=== PATIENT | male | born 1985 | race Two or more races ===

== ENCOUNTER 2016-10-15 14:50 | Inpatient (IN) | payer MEDICAID ==
[~2016-10-15] VITALS: Ht 167.6 cm; Wt 78.9 kg
[2016-10-15 15:27] VITALS: BP 108/86
[2016-10-15 15:41] LABS: BASOPHILS % (AUTO) 1.5 % (0.0-2.0); EOSINOPHILS % (AUTO) 5.8 % (0.0-3.0); LYMPHOCYTES % (AUTO) 29.2 % (20.0-45.0); MEAN CORPUSCULAR HEMOGLOBIN 30.4 PG (27.0-31.0); MEAN CORPUSCULAR HGB CONC 33.1 G/DL (32.0-36.0); MEAN CORPUSCULAR VOLUME 92 FL (80-99); MEAN PLATELET VOLUME 7.1 FL (6.5-10.1); MONOCYTES % (AUTO) 6.2 % (1.0-10.0); NEUTROPHILS % (AUTO) 57.3 % (45.0-75.0); PLATELET COUNT 333 K/UL (150-450); RED BLOOD COUNT 5.25 M/UL (4.70-6.10); RED CELL DISTRIBUTION WIDTH 12.3 % (11.6-14.8); WHITE BLOOD COUNT 9.4 K/UL (4.8-10.8)
[2016-10-15 15:53] LABS: ALANINE AMINOTRANSFERASE 23 U/L (3-41); ALBUMIN/GLOBULIN RATIO 1.1 (1.0-2.7); ANION GAP 17 (5-15); ASPARTATE AMINO TRANSFERASE 16 U/L (5-40); CALCIUM 9.4 mg/dL (8.6-10.2); CARBON DIOXIDE 27 mEQ/L (20-30); CHLORIDE 93 mEQ/L (98-107); CREATININE 0.8 mg/dL (0.7-1.2); GLOMERULAR FILTRATION RATE > 60 mL/min (>60); HEMOLYSIS 7; POTASSIUM 4.1 mEQ/L (3.4-4.9); SODIUM 137 mEQ/L (135-145); TOTAL PROTEIN 7.6 g/dL (6.6-8.7)
[2016-10-15] MEDS ORDERED: Miralax 17gm pkt ORAL PRN (16:30)
[2016-10-15] MEDS ORDERED: Morphine Sulfate 2mg/ml Inj IVP PRN (16:30)
[2016-10-15] MEDS ORDERED: Zolpidem 5mg tab ORAL PRN (16:30)
[2016-10-15] MEDS ORDERED: LORazepam Inj 2mg/ml 1ml IV PRN (16:30)
[2016-10-15] MEDS ORDERED: Mylanta II UD 30ml ORAL PRN (16:30)
--- NOTE | 2016-10-15 16:59 | Diagnostic Imaging Report ---
Indication: Shortness of breath Technique: One view of the chest Comparison: none Findings: There is elevation of the right hemidiaphragm with right basilar atelectatic change. There is a tracheostomy. Lungs and pleural spaces otherwise clear. Heart size is normal Impression: Elevated right hemidiaphragm with bibasilar atelectasis. No acute process
[2016-10-15 17:08] LABS: APPEARANCE,URINE CLEAR; KETONES,URINE NEGATIVE (NEGATIVE); LEUKOCYTE ESTERASE ,URINE NEGATIVE (NEGATIVE); NITRITE,URINE NEGATIVE (NEGATIVE); PH,URINE 6 (4.5-8.0); PROTEIN,URINE NEGATIVE (NEGATIVE); UROBILINOGEN,URINE NORMAL MG/DL (0.0-1.0)
--- NOTE | 2016-10-15 17:14 | Emergency Room Report ---
History of Present Illness General Chief Complaint: Seizure Source: Medical Record, EMS Present Illness HPI Patient presents from a detention facility. He has a history of respiratory failure and is trach/event dependent. This history of an anoxic brain injury and epilepsy. He presents secondary to status epilepticus. Per report, the patient was having a seizure for about 15 minutes. The patient received 5 mg of IV of versed by EMS. His seizure has stopped. There are no other complaints. Allergies: Coded Allergies: No Known Allergies (Unverified , 10/15/16) Patient History Past Medical History: see triage record, DM, GERD, seizures, other - Anoxic brain injury Past Surgical History: other - Trach/vent, PEG Social History: Denies: alcohol use, drug use, smoking Reviewed Nursing Documentation: PMH: Agreed, PSxH: Agreed Nursing Documentation-PMH Past Medical History Deferred: Pt Cognitively Impaired Past Medical History: No History, Except For Hx Diabetes: Yes Hx Seizures: Yes - epilespy Review of Systems All Other Systems: negative except mentioned in HPI Physical Exam Vital Signs Date Time Temp Pulse Resp B/P Pulse Ox O2 Delivery O2 Flow Rate FiO2 10/15/16 14:51 99.1 92 23 110/89 97 Trach Collar 35 10/15/16 15:02 10.0 Sp02 EP Interpretation: reviewed, normal General Appearance: no apparent distress, alert, GCS 15, non-toxic Head: normocephalic, atraumatic Eyes: bilateral eye PERRL, bilateral eye normal inspection ENT: no angioedema Neck: full range of motion, supple/symm/no masses, other - Trach site clear Respiratory: chest non-tender, lungs clear, normal breath sounds, no respiratory distress Cardiovascular #1: regular rate, rhythm Gastrointestinal: normal bowel sounds, non tender, soft, non-distended, no guarding, no rebound Rectal: deferred Musculoskeletal: other - AT baseline Neurologic: alert, other - AT baseline Psychiatric: mood/affect normal Skin: warm/dry, well hydrated, other - See RN skin Report. Medical Decision Making Diagnostic Impression: Primary Impression: Uncontrolled seizures ER Course Patient presents with uncontrolled of prolonged seizures meeting criteria for status epilepticus. However, patient had no further seizure activity here in the emergency department. Laboratory workup is noncontributory. The patient is admitted for uncontrolled seizures. CT of the head is pending and will be followed up by the inpatient physician. There is no history of trauma and the patient has a history of epilepsy so I have low suspicion for acute intracranial process. The patient is admitted for further evaluation and treatment. Labs Test 10/15/16 15:15 10/15/16 16:26 White Blood Count 9.4 K/UL (4.8-10.8) Red Blood Count 5.25 M/UL (4.70-6.10) Hemoglobin 16.0 G/DL (14.2-18.0) Hematocrit 48.2 % (42.0-52.0) Mean Corpuscular Volume 92 FL (80-99) Mean Corpuscular Hemoglobin 30.4 PG (27.0-31.0) Mean Corpuscular Hemoglobin Concent 33.1 G/DL (32.0-36.0) Red Cell Distribution Width 12.3 % (11.6-14.8) Platelet Count 333 K/UL (150-450) Mean Platelet Volume 7.1 FL (6.5-10.1) Neutrophils (%) (Auto) 57.3 % (45.0-75.0) Lymphocytes (%) (Auto) 29.2 % (20.0-45.0) Monocytes (%) (Auto) 6.2 % (1.0-10.0) Eosinophils (%) (Auto) 5.8 % (0.0-3.0) Basophils (%) (Auto) 1.5 % (0.0-2.0) Sodium Level 137 mEQ/L (135-145) Potassium Level 4.1 mEQ/L (3.4-4.9) Chloride Level 93 mEQ/L (98-107) Carbon Dioxide Level 27 mEQ/L (20-30) Anion Gap 17 (5-15) Blood Urea Nitrogen 12 mg/dL (7-23) Creatinine 0.8 mg/dL (0.7-1.2) Estimat Glomerular Filtration Rate > 60 mL/min (>60) Glucose Level 171 mg/dL (74-106) Calcium Level 9.4 mg/dL (8.6-10.2) Total Bilirubin 0.5 mg/dL (0.0-1.2) Aspartate Amino Transf (AST/SGOT) 16 U/L (5-40) Alanine Aminotransferase (ALT/SGPT) 23 U/L (3-41) Alkaline Phosphatase 114 U/L (40-129) Total Protein 7.6 g/dL (6.6-8.7) Albumin 4.1 g/dL (3.5-5.2) Globulin 3.5 g/dL Albumin/Globulin Ratio 1.1 (1.0-2.7) Urine Color Pale yellow Urine Appearance Clear Urine pH 6 (4.5-8.0) Urine Specific [place] 1.015 (1.005-1.035) Urine Protein Negative (NEGATIVE) Urine Glucose (UA) Negative (NEGATIVE) Urine Ketones Negative (NEGATIVE) Urine Occult Blood Negative (NEGATIVE) Urine Nitrite Negative (NEGATIVE) Urine Bilirubin Negative (NEGATIVE) Urine Urobilinogen Normal MG/DL (0.0-1.0) Urine Leukocyte Esterase Negative (NEGATIVE) Chest X-Ray Diagnostic Results EP Interpretation: No Findings: no consolidation, no effusion, no pneumothorax, no acute cardiopulmonary disease Number of Views: 1 Other Impression Impression: Elevated right hemidiaphragm with bibasilar atelectasis. No acute process CT/MRI/US Diagnostic Results CT/MRI/US Diagnostic Results : Imaging Test Ordered: CT head Impression pending Last Vital Signs Date Time Temp Pulse Resp B/P Pulse Ox O2 Delivery O2 Flow Rate FiO2 10/15/16 15:31 87 20 Endotracheal Tube 10.0 36 10/15/16 15:27 99.2 108/86 100 Status: improved Disposition: ADMITTED INPATIENT Condition: Serious Referrals: RICCARDO WELLS (PCP) STEPHEN VILLALOBOS D.O. Oct 15, 2016 17:14
[2016-10-15 17:18] VITALS: BP 141/81
[2016-10-15] MEDS ORDERED: UNOBMED (17:19)
[2016-10-15] MEDS ORDERED: HUMULIN R100 UNIT/1 SUBQ (17:24)
[2016-10-15] MEDS ORDERED: DOCU LIQUI50 MG/5 M1 GT (17:32)
[2016-10-15] MEDS ORDERED: NEXIUM40 MG ORAL (17:32)
[2016-10-15] MEDS ORDERED: ALBUTEROL2.5 MG/3 M INH (17:32)
[2016-10-15] MEDS ORDERED: KEPPRA500 M4 ORAL (17:32)
[2016-10-15] MEDS ORDERED: ACETAMINOPHEN325 M3 PO (17:32)
[2016-10-15] MEDS ORDERED: NORCO 5-325 TA1 EACH ORAL (17:32)
[2016-10-15] MEDS ORDERED: ARTIFICIAL TEAR15 ML BOTH EYES (17:32)
[2016-10-15] MEDS ORDERED: BISACODYL5 MG ORAL (17:32)
[2016-10-15] MEDS ORDERED: UTI-STAT L3875 MG/31 PO (17:33)
[2016-10-15] MEDS ORDERED: Pneumococcal Vaccine 25mcg/0.5ml IM ONE (19:00)
[2016-10-15 20:00] VITALS: BP 123/57
[2016-10-15] MEDS: Heparin 5000 units/ml inj SUBQ SCH (21:22)
[2016-10-16] VITALS: BP 102/76
[2016-10-16 04:00] VITALS: BP 112/82
[2016-10-16] MEDS: NovoLOG Insulin Flexpen SUBQ SCH ×4 (05:57→23:56)
[2016-10-16 06:14] LABS: BASOPHILS % (AUTO) 1.2 % (0.0-2.0); EOSINOPHILS % (AUTO) 4.8 % (0.0-3.0); LYMPHOCYTES % (AUTO) 36.3 % (20.0-45.0); MEAN CORPUSCULAR HEMOGLOBIN 30.5 PG (27.0-31.0); MEAN CORPUSCULAR HGB CONC 33.4 G/DL (32.0-36.0); MEAN CORPUSCULAR VOLUME 91 FL (80-99); MEAN PLATELET VOLUME 6.8 FL (6.5-10.1); MONOCYTES % (AUTO) 5.4 % (1.0-10.0); NEUTROPHILS % (AUTO) 52.3 % (45.0-75.0); PLATELET COUNT 325 K/UL (150-450); RED BLOOD COUNT 5.05 M/UL (4.70-6.10); RED CELL DISTRIBUTION WIDTH 12.2 % (11.6-14.8); WHITE BLOOD COUNT 9.8 K/UL (4.8-10.8)
[2016-10-16] MEDS ORDERED: NovoLOG Insulin Flexpen SUBQ SCH (06:30)
[2016-10-16 06:52] LABS: ALANINE AMINOTRANSFERASE 21 U/L (3-41); ANION GAP 17 (5-15); ASPARTATE AMINO TRANSFERASE 16 U/L (5-40); CARBON DIOXIDE 25 mEQ/L (20-30); CHLORIDE 97 mEQ/L (98-107); CREATININE 0.6 mg/dL (0.7-1.2); GLOMERULAR FILTRATION RATE > 60 mL/min (>60); HEMOLYSIS 6; POTASSIUM 3.8 mEQ/L (3.4-4.9); SODIUM 139 mEQ/L (135-145); TOTAL PROTEIN 7.1 g/dL (6.6-8.7)
[2016-10-16 08:00] VITALS: BP 119/79
[2016-10-16] MEDS: Heparin 5000 units/ml inj SUBQ SCH ×2 (08:51→20:21)
--- NOTE | 2016-10-16 11:44 | Neurology Progress Note ---
Interim History Interim History ROS Limited/Unobtainable: Yes Objective Physical Exam Last Vital Signs Date Time Temp Pulse Resp B/P Pulse Ox O2 Delivery O2 Flow Rate FiO2 10/16/16 08:00 98.8 76 20 119/79 96 Trach Collar 35 10/16/16 08:00 35.0 Laboratory Tests Test 10/15/16 15:15 10/15/16 16:26 10/16/16 03:40 White Blood Count 9.4 K/UL (4.8-10.8) 9.8 K/UL (4.8-10.8) Red Blood Count 5.25 M/UL (4.70-6.10) 5.05 M/UL (4.70-6.10) Hemoglobin 16.0 G/DL (14.2-18.0) 15.4 G/DL (14.2-18.0) Hematocrit 48.2 % (42.0-52.0) 46.1 % (42.0-52.0) Mean Corpuscular Volume 92 FL (80-99) 91 FL (80-99) Mean Corpuscular Hemoglobin 30.4 PG (27.0-31.0) 30.5 PG (27.0-31.0) Mean Corpuscular Hemoglobin Concent 33.1 G/DL (32.0-36.0) 33.4 G/DL (32.0-36.0) Red Cell Distribution Width 12.3 % (11.6-14.8) 12.2 % (11.6-14.8) Platelet Count 333 K/UL (150-450) 325 K/UL (150-450) Mean Platelet Volume 7.1 FL (6.5-10.1) 6.8 FL (6.5-10.1) Neutrophils (%) (Auto) 57.3 % (45.0-75.0) 52.3 % (45.0-75.0) Lymphocytes (%) (Auto) 29.2 % (20.0-45.0) 36.3 % (20.0-45.0) Monocytes (%) (Auto) 6.2 % (1.0-10.0) 5.4 % (1.0-10.0) Eosinophils (%) (Auto) 5.8 % (0.0-3.0) H 4.8 % (0.0-3.0) H Basophils (%) (Auto) 1.5 % (0.0-2.0) 1.2 % (0.0-2.0) Sodium Level 137 mEQ/L (135-145) 139 mEQ/L (135-145) Potassium Level 4.1 mEQ/L (3.4-4.9) 3.8 mEQ/L (3.4-4.9) Chloride Level 93 mEQ/L (98-107) L 97 mEQ/L (98-107) L Carbon Dioxide Level 27 mEQ/L (20-30) 25 mEQ/L (20-30) Anion Gap 17 (5-15) H 17 (5-15) H Blood Urea Nitrogen 12 mg/dL (7-23) 10 mg/dL (7-23) Creatinine 0.8 mg/dL (0.7-1.2) 0.6 mg/dL (0.7-1.2) L Estimat Glomerular Filtration Rate > 60 mL/min (>60) > 60 mL/min (>60) Glucose Level 171 mg/dL (74-106) H 118 mg/dL (74-106) H Calcium Level 9.4 mg/dL (8.6-10.2) 9.0 mg/dL (8.6-10.2) Total Bilirubin 0.5 mg/dL (0.0-1.2) 0.9 mg/dL (0.0-1.2) Aspartate Amino Transf (AST/SGOT) 16 U/L (5-40) 16 U/L (5-40) Alanine Aminotransferase (ALT/SGPT) 23 U/L (3-41) 21 U/L (3-41) Alkaline Phosphatase 114 U/L (40-129) 110 U/L (40-129) Total Protein 7.6 g/dL (6.6-8.7) 7.1 g/dL (6.6-8.7) Albumin 4.1 g/dL (3.5-5.2) 3.6 g/dL (3.5-5.2) Globulin 3.5 g/dL 3.5 g/dL Albumin/Globulin Ratio 1.1 (1.0-2.7) 1.0 (1.0-2.7) Urine Color Pale yellow Urine Appearance Clear Urine pH 6 (4.5-8.0) Urine Specific [place] 1.015 (1.005-1.035) Urine Protein Negative (NEGATIVE) Urine Glucose (UA) Negative (NEGATIVE) Urine Ketones Negative (NEGATIVE) Urine Occult Blood Negative (NEGATIVE) Urine Nitrite Negative (NEGATIVE) Urine Bilirubin Negative (NEGATIVE) Urine Urobilinogen Normal MG/DL (0.0-1.0) Urine Leukocyte Esterase Negative (NEGATIVE) Impression/Recommendations Problems: (1) chronic generalised seizure disorder, exacerbation (2) Severe anoxic-ischemic encephalopathy (3) Diabetes Status: unchanged Recommendations #[id number] AMRIT RAWLS Oct 16, 2016 11:44
[2016-10-16 12:00] VITALS: BP 133/72
--- NOTE | 2016-10-16 12:09 | History and Physical ---
History of Present Illness General Date patient seen: Oct 16, 2016 Reason for Hospitalization: Seizure Present Illness HPI 30 year old male with history of respiratory failure and is trach/event/PEG, living in nursing home facility with anoxic brain injury and epilepsy. He presents secondary to status epilepticus. Per report, the patient was having a seizure for about 15 minutes. The patient received 5 mg of IV of versed by EMS. His seizure has stopped. He is admitted for further work up. Allergies: Coded Allergies: No Known Allergies (Unverified , 10/15/16) Medication History Scheduled Acetaminophen (Acetaminophen), 650 MG PO EVERY 4 HOURS, (Reported) Cran/Vitc/Mannose/Inulin/Brom (Uti-Stat Liquid), 3,875 MG PO BID, (Reported) Docusate Sodium (Docu Liquid), 100 MG GT DAILY, (Reported) Esomeprazole Magnesium (Nexium), 40 MG ORAL DAILY, (Reported) Insulin Regular, Human (Humulin R), 0 SUBQ Q6HR, (Reported) Levetiracetam (Keppra), 1,500 MG ORAL EVERY 12 HOURS, (Reported) Scheduled PRN Albuterol Sulfate* (Albuterol Sulfate Hhn*), 3 ML INH Q3HR PRN for Shortness of Breath, (Reported) Bisacodyl* (Dulcolax*), 10 MG ORAL DAILY PRN for Constipation, (Reported) Dextran 70/Hypromellose (Artificial Tears Eye Drops*), 1 DROP BOTH EYES EVERY 6 HOURS PRN for Dry Eyes, (Reported) Hydrocodone Bit/Acetaminophen 5-325* ([place] 5-325*), 1 TAB ORAL Q4H PRN for For Pain, (Reported) Miscellaneous Medications Unable to Obtain Medications (Unable To Obtain Meds), (Reported) Patient History Healthcare decision maker Resuscitation status Full Code Advanced Directive on File Past Medical/Surgical History Past Medical/Surgical History: (1) Diabetes (2) Severe anoxic-ischemic encephalopathy Review of Systems All Other Systems: negative except mentioned in HPI Physical Exam General Appearance: WD/WN Lines, tubes and drains: peripheral, central line, gtube HEENT: status post trach Neck: non-tender, normal alignment Cardiovascular/Chest: normal peripheral pulses, normal rate Abdomen: normal bowel sounds, non tender Last 24 Hour Vital Signs Date Time Temp Pulse Resp B/P Pulse Ox O2 Delivery O2 Flow Rate FiO2 10/16/16 08:00 98.8 76 20 119/79 96 Trach Collar 35 10/16/16 08:00 35.0 10/16/16 08:00 79 10/16/16 06:30 T-piece 10.0 35 10/16/16 06:30 83 13 T-piece 10.0 35 10/16/16 06:30 96 T-piece 10.0 35 10/16/16 04:00 35.0 10/16/16 04:00 96.8 88 20 112/82 97 Trach Collar 10/16/16 03:58 79 10/16/16 00:38 96 T-piece 10.0 35 10/16/16 00:38 T-piece 10.0 35 10/16/16 00:01 80 10/16/16 00:00 35.0 10/16/16 00:00 97.9 100 24 102/76 98 Trach Collar 10/15/16 20:00 97 10/15/16 20:00 97.8 86 18 123/57 99 Trach Collar 35 10/15/16 19:30 T-piece 10.0 35 10/15/16 19:30 99 T-piece 10.0 35 10/15/16 19:29 63 16 T-piece 10.0 35 10/15/16 17:18 98.1 82 18 141/81 96 Trach Collar 10/15/16 17:00 80 10/15/16 17:00 35.0 10/15/16 16:27 99.2 20 108/86 100 Endotracheal Tube 10.0 36 10/15/16 15:31 87 20 Endotracheal Tube 10.0 36 10/15/16 15:27 99.2 14 108/86 100 Endotracheal Tube 10.0 36 10/15/16 15:05 92 13 T-piece 10.0 35 10/15/16 15:02 95 T-piece 10.0 35 10/15/16 15:02 T-piece 10.0 35 10/15/16 14:51 99.1 92 23 110/89 97 Trach Collar 35 Intake and Output 10/15/16 10/16/16 19:00 07:00 Intake Total 30 ml 280 ml Output Total 120 ml Balance -90 ml 280 ml Intake Free Water 30 ml 100 ml Tube Feeding 180 ml Output Urine Total 120 ml # Voids 3 # Bowel Movements 1 Laboratory Tests Test 10/15/16 15:15 10/15/16 16:26 10/16/16 03:40 White Blood Count 9.4 K/UL (4.8-10.8) 9.8 K/UL (4.8-10.8) Red Blood Count 5.25 M/UL (4.70-6.10) 5.05 M/UL (4.70-6.10) Hemoglobin 16.0 G/DL (14.2-18.0) 15.4 G/DL (14.2-18.0) Hematocrit 48.2 % (42.0-52.0) 46.1 % (42.0-52.0) Mean Corpuscular Volume 92 FL (80-99) 91 FL (80-99) Mean Corpuscular Hemoglobin 30.4 PG (27.0-31.0) 30.5 PG (27.0-31.0) Mean Corpuscular Hemoglobin Concent 33.1 G/DL (32.0-36.0) 33.4 G/DL (32.0-36.0) Red Cell Distribution Width 12.3 % (11.6-14.8) 12.2 % (11.6-14.8) Platelet Count 333 K/UL (150-450) 325 K/UL (150-450) Mean Platelet Volume 7.1 FL (6.5-10.1) 6.8 FL (6.5-10.1) Neutrophils (%) (Auto) 57.3 % (45.0-75.0) 52.3 % (45.0-75.0) Lymphocytes (%) (Auto) 29.2 % (20.0-45.0) 36.3 % (20.0-45.0) Monocytes (%) (Auto) 6.2 % (1.0-10.0) 5.4 % (1.0-10.0) Eosinophils (%) (Auto) 5.8 % (0.0-3.0) H 4.8 % (0.0-3.0) H Basophils (%) (Auto) 1.5 % (0.0-2.0) 1.2 % (0.0-2.0) Sodium Level 137 mEQ/L (135-145) 139 mEQ/L (135-145) Potassium Level 4.1 mEQ/L (3.4-4.9) 3.8 mEQ/L (3.4-4.9) Chloride Level 93 mEQ/L (98-107) L 97 mEQ/L (98-107) L Carbon Dioxide Level 27 mEQ/L (20-30) 25 mEQ/L (20-30) Anion Gap 17 (5-15) H 17 (5-15) H Blood Urea Nitrogen 12 mg/dL (7-23) 10 mg/dL (7-23) Creatinine 0.8 mg/dL (0.7-1.2) 0.6 mg/dL (0.7-1.2) L Estimat Glomerular Filtration Rate > 60 mL/min (>60) > 60 mL/min (>60) Glucose Level 171 mg/dL (74-106) H 118 mg/dL (74-106) H Calcium Level 9.4 mg/dL (8.6-10.2) 9.0 mg/dL (8.6-10.2) Total Bilirubin 0.5 mg/dL (0.0-1.2) 0.9 mg/dL (0.0-1.2) Aspartate Amino Transf (AST/SGOT) 16 U/L (5-40) 16 U/L (5-40) Alanine Aminotransferase (ALT/SGPT) 23 U/L (3-41) 21 U/L (3-41) Alkaline Phosphatase 114 U/L (40-129) 110 U/L (40-129) Total Protein 7.6 g/dL (6.6-8.7) 7.1 g/dL (6.6-8.7) Albumin 4.1 g/dL (3.5-5.2) 3.6 g/dL (3.5-5.2) Globulin 3.5 g/dL 3.5 g/dL Albumin/Globulin Ratio 1.1 (1.0-2.7) 1.0 (1.0-2.7) Urine Color Pale yellow Urine Appearance Clear Urine pH 6 (4.5-8.0) Urine Specific [place] 1.015 (1.005-1.035) Urine Protein Negative (NEGATIVE) Urine Glucose (UA) Negative (NEGATIVE) Urine Ketones Negative (NEGATIVE) Urine Occult Blood Negative (NEGATIVE) Urine Nitrite Negative (NEGATIVE) Urine Bilirubin Negative (NEGATIVE) Urine Urobilinogen Normal MG/DL (0.0-1.0) Urine Leukocyte Esterase Negative (NEGATIVE) Microbiology Date/Time Source Procedure Growth Status 10/15/16 16:26 Straight Cath Urine Culture - Preliminary NO GROWTH Resulted Height (Feet): 5 Height (Inches): 6.00 Weight (Pounds): 174 Medications Current Medications Medications (Trade) Dose Ordered Sig/Sanjeev Route PRN Reason Start Time Stop Time Status Last Admin Dose Admin Acetaminophen (Tylenol) 650 mg Q4H PRN ORAL fever 10/15/16 16:30 11/14/16 16:29 Al Hydroxide/Mg Hydroxide (Mylanta II) 30 ml Q6H PRN ORAL dyspepsia 10/15/16 16:30 11/14/16 16:29 Dextrose (Dextrose 50%) STAT PRN IV Hypoglycemia 10/15/16 16:30 11/14/16 16:29 Divalproex Sodium (Depakote Sprinkles) 250 mg EVERY 6 HOURS GT 10/16/16 12:00 11/15/16 11:59 Heparin Sodium (Porcine) (Heparin 5000 units/ml) 5,000 units EVERY 12 HOURS SUBQ 10/15/16 21:00 11/14/16 20:59 10/16/16 08:51 Insulin Aspart (NovoLOG) EVERY 6 HOURS SUBQ 10/16/16 06:00 11/15/16 05:59 10/16/16 05:57 Levetiracetam (Keppra) 1,500 mg Q12HR NG 10/16/16 12:00 11/15/16 11:59 Lorazepam (Ativan 2mg/ml 1ml) 2 mg Q1H PRN IV seizures 10/15/16 16:30 10/22/16 16:29 10/15/16 21:22 Morphine Sulfate (Morphine Sulfate) 1 mg Q4H PRN IVP FOR PAIN 410/15/16 16:30 10/22/16 16:29 Ondansetron HCl (Zofran) 4 mg Q6H PRN IVP Nausea & Vomiting 10/15/16 16:30 11/14/16 16:29 Pantoprazole (Protonix) 40 mg DAILY ORAL 10/16/16 09:00 11/15/16 08:59 10/16/16 08:49 Polyethylene Glycol (Miralax) 17 gm HSPRN PRN ORAL Constipation 10/15/16 16:30 11/14/16 16:29 Zolpidem Tartrate (Ambien) 5 mg HSPRN PRN ORAL Insomnia 10/15/16 16:30 11/14/16 16:29 Assessment/Plan Problem List: (1) Uncontrolled seizures ICD Codes: R56.9 - Unspecified convulsions SNOMED: 86194659 (2) Diabetes ICD Codes: E11.9 - Type 2 diabetes mellitus without complications SNOMED: 00168438 (3) Severe anoxic-ischemic encephalopathy ICD Codes: G93.1 - Anoxic brain damage, not elsewhere classified; I67.82 - Cerebral ischemia SNOMED: 257559411 Assessment/Plan [facility] admission Neuro evaluation titrate seizure meds Gtube feeding dvt prophylaxis EMMIE PEDROZA Oct 16, 2016 12:09
[2016-10-16] MEDS: Depakote 125mg Sprinkles GT SCH ×3 (12:38→23:56)
[2016-10-16] MEDS: levETIRAcetam 500mg/5ml Liquid NG SCH ×2 (12:38→20:20)
[2016-10-16 16:00] VITALS: BP 96/71
--- NOTE | 2016-10-16 18:29 | Consultation ---
DATE OF CONSULTATION: 10/16/2016 NEUROLOGICAL CONSULTATION HISTORY OF PRESENT ILLNESS: The patient is a [id number] man resident of a nursing facility and was observed to have intermittent twitching in left upper extremity. Paramedics were called to the scene. The patient had a continuous twitching for about 15 minutes, but after receiving 5 mg of Versed, seizure stopped. The patient was brought to this hospital for further assessment. His vital signs were normal. He was afebrile, he had a temperature 99.1 degrees. No seizures were noted in the emergency room. The patient's laboratory work was obtained with normal CBC studies. Chemistry panel unremarkable except anion gap of 17 and blood sugar 171. Urinalysis normal. His chest x-ray, elevated right hemidiaphragm with bibasilar atelectasis, but no acute process noted. CAT scan of the brain was postponed. Following admission, there was brief episode of intermittent twitching of his both upper extremities, more on the left, gradually resolved with the current treatment. He is maintained on IV fluids, subcutaneous heparin, insulin, pantoprazole, Zofran, MiraLAX and zolpidem. The patient to continue with Keppra 1500 mg b.i.d. PAST MEDICAL HISTORY: Known that the patient suffered from severe anoxic brain damage, becoming nonverbal, noncommunicative, and bedridden with chronic seizure disorder, maintained on Keppra 1500 mg b.i.d. The patient has a chronic respiratory insufficiency. As mentioned, the patient has a history of diabetes, chronic seizure disorder, status post anoxic brain injury, and history of GERD. ALLERGIES: None reported. FAMILY HISTORY: Unavailable. REVIEW OF SYSTEMS: Unable to obtain due the patient's status. The patient has PEG and trach placed. PHYSICAL EXAMINATION: GENERAL: This is a well-developed and ill-appearing somewhat pale man, not in acute distress. VITAL SIGNS: Blood pressure 115/80 and respiration 18. HEENT: Head, normocephalic. There is no evidence of trauma. Eyes, ears, and throat are clear. NECK: Rigid in all directions. MUSCULOSKELETAL: Diffuse atrophy, spasticity bilaterally. Peripheral pulses 1+ symmetric. MENTAL STATUS: The patient is lethargic, vigorous stimulation, moans and groans, briefly open eyes. No eye contact. He does not follow instructions and remained nonverbal. CRANIAL NERVE II: A 3 mm, responding to light. Extraocular movement full range. Fundi unable to test due to noncompliance. CRANIAL NERVE V: Normal corneal responses. CRANIAL NERVE VII: No gross asymmetry. CRANIAL NERVE VIII: Grossly normal hearing. CRANIAL NERVE IX THROUGH XII: Absent gag response. Tongue is in midline. MOTOR EXAMINATION: Diffuse rigidity, spasticity of both upper lower extremities with flexor with a tendency to contract both arms and both knees. A peripheral pulses 1+. Deep tendon reflexes are 4+ bilaterally. Plantar response is mute. SENSORY EXAMINATION: No response to pin stimulation. IMPRESSION: 1. 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 2. Chronic seizure disorder, breakthrough exacerbation. 3. History of diabetes. 4. History of gastroesophageal reflux disease. RECOMMENDATION: The patient who has a chronic seizure disorder, presented with exacerbation of seizure activities while being maintained on maximum of Keppra. We will obtain Keppra level, to identify toxicity versus subtherapeutic range. We will add new anticonvulsant, Depakote 250 mg b.i.d. to be titrated as necessary. Electroencephalogram to rule out ongoing seizure activities. The patient to be observed for any paroxysmal events. Thank you for allowing me to see this interesting patient in neurological consultation. Aurelio Osborne M.D. DR: AVILA JOB#: [id number] CC:
[2016-10-16 20:00] VITALS: BP 104/64
[2016-10-17] VITALS: BP 125/73
[2016-10-17 04:00] VITALS: BP 107/82
[2016-10-17] MEDS: Depakote 125mg Sprinkles GT SCH ×3 (05:45→18:39)
[2016-10-17] MEDS: NovoLOG Insulin Flexpen SUBQ SCH ×3 (05:46→18:41)
[2016-10-17 08:00] VITALS: BP 125/78
[2016-10-17] MEDS: levETIRAcetam 500mg/5ml Liquid NG SCH ×2 (08:41→21:14)
[2016-10-17] MEDS: Heparin 5000 units/ml inj SUBQ SCH ×2 (08:43→21:17)
--- NOTE | 2016-10-17 11:21 | Pulmonology Progress Note ---
Assessment/Plan Problems: (1) Uncontrolled seizures (2) Diabetes (3) Severe anoxic-ischemic encephalopathy Assessment/Plan improving no seizures neuro consult appreciated Subjective ROS Limited/Unobtainable: Yes Allergies: Coded Allergies: No Known Allergies (Unverified , 10/15/16) Objective Last 24 Hour Vital Signs Date Time Temp Pulse Resp B/P Pulse Ox O2 Delivery O2 Flow Rate FiO2 10/17/16 08:00 98.1 78 20 125/78 98 T-piece 98 10/17/16 08:00 35.0 10/17/16 08:00 73 10/17/16 07:37 T-piece 10.0 35 10/17/16 07:37 99 T-piece 10.0 35 10/17/16 07:36 94 18 T-piece 10.0 35 10/17/16 04:00 80 10/17/16 04:00 35.0 10/17/16 04:00 98.4 78 20 107/82 95 T-piece 10/17/16 01:20 96 T-piece 10.0 35 10/17/16 01:20 T-piece 10.0 35 10/17/16 00:00 98.1 84 18 125/73 94 T-piece 10/17/16 00:00 77 10/16/16 20:00 35.0 10/16/16 20:00 97.7 53 18 104/64 99 T-piece 10/16/16 20:00 65 10/16/16 19:00 T-piece 10.0 35 10/16/16 19:00 92 16 T-piece 10.0 35 10/16/16 19:00 97 T-piece 10.0 35 10/16/16 16:00 71 10/16/16 16:00 98.4 63 20 96/71 99 Trach Collar 10/16/16 16:00 35.0 10/16/16 12:30 T-piece 10.0 35 10/16/16 12:30 95 T-piece 10.0 35 10/16/16 12:00 35.0 10/16/16 12:00 97.9 71 18 133/72 99 Trach Collar 35 Intake and Output 10/16/16 10/17/16 19:00 07:00 Intake Total 455 ml 445 ml Balance 455 ml 445 ml Intake Free Water 100 ml 100 ml Tube Feeding 340 ml 345 ml Other 15 ml # Voids 2 Objective General Appearance: WD/WN Lines, tubes and drains: peripheral, gtube HEENT: status post trach Neck: non-tender, normal alignment Cardiovascular/Chest: normal peripheral pulses, normal rate Abdomen: normal bowel sounds, non tender, Gtube EXT: no C/C/E Microbiology Date/Time Source Procedure Growth Status 10/15/16 13:00 Nasal Nares MRSA Culture - Final NO METHICILLIN RESISTANT STAPH AUREUS... Complete 10/15/16 16:26 Straight Cath Urine Culture - Final NO GROWTH AFTER 48 HOURS Complete 10/15/16 13:00 Rectum VRE Culture - Final NO VANCOMYCIN RESISTANT ENTEROCOCCUS ... Complete Laboratory Tests 10/17/16 05:50: Valproic Acid (Depakene) Level 50, Levetiracetam (Keppra) Level [Pending] Current Medications Medications (Trade) Dose Ordered Sig/Sanjeev Route PRN Reason Start Time Stop Time Status Last Admin Dose Admin Acetaminophen (Tylenol) 650 mg Q4H PRN ORAL fever 10/15/16 16:30 11/14/16 16:29 Al Hydroxide/Mg Hydroxide (Mylanta II) 30 ml Q6H PRN ORAL dyspepsia 10/15/16 16:30 11/14/16 16:29 Dextrose (Dextrose 50%) STAT PRN IV Hypoglycemia 10/15/16 16:30 11/14/16 16:29 Divalproex Sodium (Depakote Sprinkles) 250 mg EVERY 6 HOURS GT 10/16/16 12:00 11/15/16 11:59 10/17/16 05:45 Heparin Sodium (Porcine) (Heparin 5000 units/ml) 5,000 units EVERY 12 HOURS SUBQ 10/15/16 21:00 11/14/16 20:59 10/17/16 08:43 Insulin Aspart (NovoLOG) EVERY 6 HOURS SUBQ 10/16/16 06:00 11/15/16 05:59 10/17/16 05:46 Levetiracetam (Keppra) 1,500 mg Q12HR NG 10/16/16 12:00 11/15/16 11:59 10/17/16 08:41 Lorazepam (Ativan 2mg/ml 1ml) 2 mg Q1H PRN IV seizures 10/15/16 16:30 10/22/16 16:29 10/15/16 21:22 Morphine Sulfate (Morphine Sulfate) 1 mg Q4H PRN IVP FOR PAIN 4-10 10/15/16 16:30 10/22/16 16:29 Ondansetron HCl (Zofran) 4 mg Q6H PRN IVP Nausea & Vomiting 10/15/16 16:30 11/14/16 16:29 Pantoprazole (Protonix) 40 mg DAILY ORAL 10/16/16 09:00 11/15/16 08:59 10/17/16 08:41 Polyethylene Glycol (Miralax) 17 gm HSPRN PRN ORAL Constipation 10/15/16 16:30 11/14/16 16:29 Zolpidem Tartrate (Ambien) 5 mg HSPRN PRN ORAL Insomnia 10/15/16 16:30 11/14/16 16:29 EMMIE PEDROZA Oct 17, 2016 11:21
[2016-10-17 12:00] VITALS: BP 114/73
[2016-10-17 16:00] VITALS: BP 124/68
[2016-10-17 20:00] VITALS: BP 101/67
[2016-10-18] VITALS (7 sets, daily range): BP systolic 94–121; BP diastolic 58–74
[2016-10-18] MEDS: Depakote 125mg Sprinkles GT SCH ×4 (00:15→18:38)
[2016-10-18] MEDS: NovoLOG Insulin Flexpen SUBQ SCH ×4 (00:17→18:38)
[2016-10-18] MEDS: levETIRAcetam 500mg/5ml Liquid NG SCH ×2 (09:47→21:15)
[2016-10-18] MEDS: Heparin 5000 units/ml inj SUBQ SCH ×2 (09:50→21:17)
[2016-10-18] MEDS ORDERED: Zolpidem 5mg tab ORAL PRN (23:11)
[2016-10-18] MEDS ORDERED: Miralax 17gm pkt ORAL PRN (23:14)
--- NOTE | 2016-10-18 23:15 | Pulmonology Progress Note ---
Assessment/Plan Problems: (1) Uncontrolled seizures (2) Diabetes (3) Severe anoxic-ischemic encephalopathy Assessment/Plan improving no seizures neuro consult appreciated Subjective Allergies: Coded Allergies: No Known Allergies (Unverified , 10/15/16) Objective Last 24 Hour Vital Signs Date Time Temp Pulse Resp B/P Pulse Ox O2 Delivery O2 Flow Rate FiO2 10/18/16 23:09 97.8 76 18 100/58 96 T-piece 35 10/18/16 20:00 35 10/18/16 20:00 98.0 72 20 95/65 98 T-piece 10/18/16 19:31 96 T-piece 10.0 35 10/18/16 19:31 T-piece 10.0 35 10/18/16 19:30 69 18 T-piece 10.0 35 10/18/16 16:00 35 10/18/16 16:00 96.8 59 20 94/69 Trach Collar 35 10/18/16 12:55 96 T-piece 10.0 35 10/18/16 12:55 T-piece 10.0 35 10/18/16 12:00 35 10/18/16 12:00 97.7 74 21 94/64 94 T-piece 35 10/18/16 08:00 66 10/18/16 08:00 35 10/18/16 08:00 97.2 79 21 97/73 94 T-piece 35 10/18/16 07:38 98 T-piece 10.0 35 10/18/16 07:38 T-piece 10.0 35 10/18/16 07:37 70 20 T-piece 10.0 35 10/18/16 04:00 80 10/18/16 04:00 97.9 68 18 118/74 98 T-piece 35 10/18/16 01:09 98 T-piece 10.0 35 10/18/16 01:09 T-piece 10.0 35 10/18/16 00:00 80 10/18/16 00:00 35 10/18/16 00:00 98.4 67 20 121/70 97 T-piece 35 Intake and Output 10/17/16 10/18/16 19:00 07:00 Intake Total 300 ml 460 ml Balance 300 ml 460 ml Intake Free Water 100 ml Tube Feeding 270 ml 360 ml Other 30 ml # Voids 2 1 Objective General Appearance: WD/WN Lines, tubes and drains: peripheral, gtube HEENT: status post trach Neck: non-tender, normal alignment Cardiovascular/Chest: normal peripheral pulses, normal rate Abdomen: normal bowel sounds, non tender, Gtube EXT: no C/C/E Current Medications Medications (Trade) Dose Ordered Sig/Sanjeev Route PRN Reason Start Time Stop Time Status Last Admin Dose Admin Acetaminophen (Tylenol) 650 mg Q4H PRN ORAL fever 10/19/16 00:30 11/18/16 00:29 Al Hydroxide/Mg Hydroxide (Mylanta II) 30 ml Q6H PRN ORAL dyspepsia 10/19/16 04:30 11/18/16 04:29 Dextrose (Dextrose 50%) STAT PRN IV Hypoglycemia 10/18/16 23:12 11/17/16 23:11 Divalproex Sodium (Depakote Sprinkles) 250 mg EVERY 6 HOURS GT 10/19/16 00:00 11/18/16 00:00 Heparin Sodium (Porcine) (Heparin 5000 units/ml) 5,000 units EVERY 12 HOURS SUBQ 10/19/16 09:00 11/18/16 08:59 Insulin Aspart (NovoLOG) EVERY 6 HOURS SUBQ 10/19/16 00:00 11/18/16 00:00 Levetiracetam (Keppra) 1,500 mg Q12HR NG 10/19/16 09:00 11/18/16 08:59 Lorazepam (Ativan 2mg/ml 1ml) 2 mg Q1H PRN IV seizures 10/18/16 23:30 10/25/16 23:29 Morphine Sulfate (Morphine Sulfate) 1 mg Q4H PRN IVP FOR PAIN 4-10 10/19/16 00:30 10/26/16 00:29 Ondansetron HCl (Zofran) 4 mg Q6H PRN IVP Nausea & Vomiting 10/18/16 23:13 11/17/16 23:12 Pantoprazole (Protonix) 40 mg DAILY ORAL 10/19/16 09:00 11/18/16 08:59 Polyethylene Glycol (Miralax) 17 gm HSPRN PRN ORAL Constipation 10/18/16 23:14 11/17/16 23:13 Zolpidem Tartrate (Ambien) 5 mg HSPRN PRN ORAL Insomnia 10/18/16 23:11 11/17/16 23:10 EMMIE PEDROZA Oct 18, 2016 23:15
[2016-10-18] MEDS ORDERED: LORazepam Inj 2mg/ml 1ml IV PRN (23:30)
[2016-10-19] VITALS: BP 112/78
[2016-10-19] MEDS ORDERED: Morphine Sulfate 2mg/ml Inj IVP PRN (00:30)
[2016-10-19 04:00] VITALS: BP 108/72
[2016-10-19] MEDS ORDERED: Mylanta II UD 30ml ORAL PRN (04:30)
[2016-10-19] MEDS: NovoLOG Insulin Flexpen SUBQ SCH ×2 (06:00)
[2016-10-19] MEDS: Depakote 125mg Sprinkles GT SCH ×2 (06:00)
[2016-10-19 08:00] VITALS: BP 126/83
[2016-10-19] MEDS ORDERED: Heparin 5000 units/ml inj SUBQ SCH (09:00)
[2016-10-19] MEDS ORDERED: levETIRAcetam 500mg/5ml Liquid NG SCH (09:00)
[2016-10-19 12:00] VITALS: BP 118/74
[2016-10-19] MEDS ORDERED: DEPAKOTE SPRIN125 MG PO (12:43)
[2016-10-19] MEDS ORDERED: HEPARIN SO5000 UNIT5 IJ (12:43)
[2016-10-19] MEDS ORDERED: AMBIEN5 MG ORAL (13:11)
[2016-10-19] MEDS ORDERED: KEPPRA500 M3 ORAL (13:17)
[2016-10-19] MEDS ORDERED: NOVOLOG100 UNIT/3 SUBQ (13:20)
[2016-10-19] MEDS ORDERED: ATIVAN2 MG/1 ML IV (13:21)
[2016-10-19] MEDS ORDERED: Sterile Water Irrig 1000ml IRRIG ONE (14:03)
--- NOTE | 2016-10-19 14:06 | Cardiology Report ---
APPROVED REPORT EKG Measurement Heart [id number] Normal sinus rhythm Normal ECG
--- NOTE | 2016-10-20 12:33 | Discharge Summary ---
Discharge Summary Hospital Course Date of Admission Oct 15, 2016 at 15:26 Date of Discharge Oct 19, 2016 at 14:04 Admitting Diagnosis recurrent seizures HPI Win Jaffe is a 30 year old male who was admitted on Oct 15, 2016 at 15:26 for Recurrent Seizures Hospital Course dc summary #[id number] Discharge Medications Continued Medications: Acetaminophen (Acetaminophen) 325 Mg Capsule 650 MG PO EVERY 4 HOURS, CAP Albuterol Sulfate* (Albuterol Sulfate Hhn*) 2.5 Mg/3 Ml Vial.neb 3 ML INH Q3HR PRN for Shortness of Breath, EA Bisacodyl* (Dulcolax*) 5 Mg Tablet.dr 10 MG ORAL DAILY PRN for Constipation, #10 TAB 0 Refills Cran/Vitc/Mannose/Inulin/Brom (Uti-Stat Liquid) 3,875 Mg/30 Ml Liquid 3875 MG PO BID, ML Dextran 70/Hypromellose (Artificial Tears Eye Drops*) 15 Ml Drops 1 DROP BOTH EYES EVERY 6 HOURS PRN for Dry Eyes, #15 ML 0 Refills Divalproex Sodium (Depakote Sprinkle) 125 Mg Cap.sprink 250 MG PO EVERY 6 HOURS, CAP Esomeprazole Magnesium (Nexium) 40 Mg Capsule.dr 40 MG ORAL DAILY, CAP Heparin Sodium,Porcine (Heparin Sodium) 5,000 Unit/1 Ml Cartridge 5000 UNIT IJ EVERY 12 HOURS Hydrocodone Bit/Acetaminophen 5-325* (Mentone 5-325*) 1 Each Tablet 1 TAB ORAL Q4H PRN for For Pain, TAB 0 Refills Insulin Aspart* (Novolog*) 100 Unit/1 Ml Insuln.pen 0 SUBQ, #1 EA 0 Refills Levetiracetam (Keppra) 500 Mg Tablet 1500 MG ORAL EVERY 12 HOURS, #60 TAB 0 Refills Lorazepam* (Ativan*) 2 Mg/1 Ml Vial 1 MG IV Q1H PRN for For Seizures, VIAL Zolpidem Tartrate* (Ambien*) 5 Mg Tablet 5 MG ORAL BEDTIME PRN for Insomnia, TAB Discharge Condition Upon Discharge: stable Discharge Disposition Patient was discharged to SNF/Subacute Facility(03) Discharge Diagnoses: Discharge Instructions Discharge Instructions Special Instructions I have been assigned to complete a D/C Summary on this account. I was not involved in the patient management Cielo Grady NP ([place]) Oct 20, 2016 12:33
--- NOTE | 2016-10-21 08:18 | Discharge Summary 2 SIG ---
DATE OF ADMISSION: 10/15/2016 DATE OF DISCHARGE: 10/19/2016 REASON FOR ADMISSION: 30-year-old male with chronic respiratory failure, tracheostomy dependency, anoxic brain injury, and history of seizure, presented secondary to exacerbation of seizure disorder. The patient was having seizure for 15 minutes at the facility. The patient received 5 mg of Versed by intravenous route by paramedics, which stopped the seizure. No further seizure upon arrival to emergency department. CT of the head revealed no acute intracranial pathology. Chest x-ray revealed elevated right hemidiaphragm with bibasilar atelectasis, but no acute cardiopulmonary changes. Urinalysis was negative. No leukocytosis. Stable hemoglobin and hematocrit. The patient was admitted for further management. ADMITTING DIAGNOSES: 1. Chronic generalized seizure disorder exacerbation. 2. Severe anoxic/ischemic encephalopathy. 3. Chronic respiratory failure with tracheostomy status. HOSPITAL STAY: The patient was admitted to [facility]. Neurology consult was requested. Seizure precautions were maintained. Neurologist added another anticonvulsant- Depakote to existing regimen ( prior on Keppra only). No further episodes of seizures. The patient was closely monitored. Tracheostomy care provided. Fraction of inspired oxygen was titrate to keep oxygen saturation above 92%. Pulmonary toilet provided. Chest x-ray negative. Blood sugar was managed with sliding scale of insulin , stable. DVT prophylaxis provided. GI prophylaxis provided. Strict aspiration precautions maintained. The patient's G-tube feeding tolerance was monitored. The patient was able to tolerate tube feeding. Neurologist recommended EEG to rule out ongoing activity, however, no further seizure activity at the hospital after reported seizure activity in the residential facility. Thus at thsi time, EEG was canceled. Continue new anticonvulsant regimen of Depakote and Keppra at the subacute faciltiy. DISCHARGE DIAGNOSES: 1. Chronic generalized seizure disorder exacerbation. 2. Severe anoxic/ischemic encephalopathy. 3. Chronic respiratory failure. 4. Tracheostomy status. 5. Diabetes. 6. Dysphagia, gastrostomy tube. DISCHARGE MEDICATIONS: See medication reconciliation list. DISCHARGE INSTRUCTIONS: The patient was discharged to subacute residential facility. FOLLOWUP: Follow up with medical doctor and migratory game bird biologist at the facility. Emmie Melendez M.D. I have been assigned to dictate discharge summary on this account and I was not involved in the patient's management. Cielo LopezMohawk Valley General HospitalBhavik NCristoferPCristofer DR: Luis JOB#: [id number] CC: JANETT
== END 2016-10-19 14:04 | DRG 53 ==
LOC: ENRESERVDT → ENRESERVTM → EDBD 14:50 → EMR 15:15 → 2W 15:26 → EDBEDREQ 16:04 → 2W 10-16 12:00 → 3E 10-18 23:08
DX: G40.419 Other generalized epilepsy and epileptic syndromes, intractable, without status epilepticus (principal); G82.50 Quadriplegia, unspecified; G93.1 Anoxic brain damage, not elsewhere classified; J96.10 Chronic respiratory failure, unspecified whether with hypoxia or hypercapnia; Z43.0 Encounter for attention to tracheostomy; R13.10 Dysphagia, unspecified; Z43.1 Encounter for attention to gastrostomy; E11.9 Type 2 diabetes mellitus without complications; Z79.4 Long term (current) use of insulin; K21.9 Gastro-esophageal reflux disease without esophagitis
CPT/HCPCS: 36415; 70450; 71010; 80053; 80164; 80299; 81003; 82962; 85025; 87040; 87081; 87086; 90732; 93005; 94664; 94760; J1815

== ENCOUNTER 2017-09-25 21:18 | Emergency (ER) | payer MEDICAID ==
[~2017-09-25] VITALS: Ht 172.7 cm; Wt 59.0 kg
[~2017-09-25 21:18] MED LIST: ACETAMINOPHEN325 M3 PO; ALBUTEROL SULFAT2 MG PO; ALBUTEROL2.5 MG/3 M INH; AMBIEN5 MG ORAL; ARTIFICIAL TEAR15 ML BOTH EYES; ATIVAN1 MG ORAL; ATIVAN2 MG/1 ML IV; BISACODYL5 MG ORAL; COLACE100 MG ORAL; DEPAKENE250 MG/5 M PO; DEPAKOTE SPRIN125 MG PO; DOCU LIQUI50 MG/5 M1 GT; DULCOLAX10 MG RC; HEPARIN SO5000 UNIT2 SUBQ; HEPARIN SO5000 UNIT5 IJ; HIBICLENS118 ML ORAL; HUMULIN R100 UNIT/1 SUBQ; KEPPRA1000 MG ORAL; KEPPRA500 M3 ORAL; KEPPRA500 M4 ORAL; MILK OF MA400 MG/51 ORAL; MULTI-DELYN237 ML GT; NEXIUM40 MG ORAL; NORCO 5-325 TA1 EACH ORAL; NOVOLOG100 UNIT/3 SUBQ; TYLENOL650 MG/20. ORAL; UNOBMED; UTI-STAT L3875 MG/31 PO
[2017-09-25 21:24] VITALS: BP 107/63
[2017-09-25] MEDS ORDERED: Albuterol/Ipratropium 3ml neb HHN ONE (22:00)
--- NOTE | 2017-09-25 22:33 | Emergency Room Report ---
History of Present Illness General Chief Complaint: Upper Respiratory Illness Source: Medical Record, EMS Present Illness HPI This is an unfortunate 31-year-old male with history of seizure and anoxic brain injury. He is bed bound and has a tracheostomy and feeding tube. Yesterday he pulled out history cast me to. He was observed overnight and seemed to be doing well. Today he seemed to be coughing more and not as awake. A venous blood gas showed pH of 7.37 and a CO2 of 47. He was sent here to be evaluated. Unable to get any history from this patient. Per EMS, his oxygenation was 100% on 2 L. Allergies: Coded Allergies: No Known Allergies (Unverified , 10/15/16) Patient History Past Medical History: see triage record, old chart reviewed Past Surgical History: other Pertinent Family History: none Social History: Denies: smoking Immunizations: other Reviewed Nursing Documentation: PMH: Agreed, PSxH: Agreed Nursing Documentation-PMH Hx Cardiac Problems: No Hx Diabetes: Yes Hx Cancer: No Hx Seizures: Yes Hx Epilepsy: Yes Hx Dysphasia: Yes Hx Neurologic Surgery: No Review of Systems Eye: Denies: eye pain, blurred vision ENT: Denies: ear pain, nose congestion, throat swelling Respiratory: Reports: shortness of breath, Denies: cough Cardiovascular: Denies: chest pain, palpitations Gastrointestinal: Denies: abdominal pain, diarrhea, nausea, vomiting Musculoskeletal: Denies: back pain, joint pain Skin: Denies: rash Neurological: Denies: headache, numbness Endocrine: Denies: increased thirst, increased urine Hematologic/Lymphatic: Denies: easy bruising All Other Systems: negative except mentioned in HPI Physical Exam Vital Signs Date Time Temp Pulse Resp B/P (MAP) Pulse Ox O2 Delivery O2 Flow Rate FiO2 09/25/17 21:02 98.0 78 20 107/63 100 Room Air 98.1 09/25/17 21:24 2.0 09/25/17 21:57 21 vitals normal Sp02 EP Interpretation: reviewed, normal General Appearance: no apparent distress, alert, Chronically Ill Head: normocephalic, atraumatic Eyes: bilateral eye PERRL, bilateral eye EOMI ENT: normal pharynx Neck: full range of motion, supple, no meningismus, tracheotomy - Stoma open Respiratory: chest non-tender, lungs clear, normal breath sounds Cardiovascular #1: regular rate, rhythm, no murmur Gastrointestinal: normal bowel sounds, non tender, no mass, no organomegaly, no bruit, non-distended Musculoskeletal: other - Contracted Psychiatric: mood/affect normal Skin: warm/dry Procedures Additional Procedure Procedure Narrative Procedure: Tracheostomy tube insertion Indication: Tracheostomy tube dislodgment Description: I placed a soft seal 7 mm tracheostomy tube. Patient tolerated procedure without a problem. He coughed up a lot of phlegm and mucous. He was suctioned and breathing treatment given. X-ray confirmed placement. No complication. Medical Decision Making Diagnostic Impression: Primary Impression: Tracheostomy malfunction ER Course Patient here for dislodgment of his tracheostomy tube. A new one placed. Patient was suctioned for any mucous obstruction. Breathing she been given. Chest x-ray unremarkable. No evidence of pneumothorax, pneumonia or obstruction. We'll discharge back to snf. Chest X-Ray Diagnostic Results Chest X-Ray Diagnostic Results : Chest X-Ray Ordered: Yes # of Views/Limited/Complete: 1 View Indication: Shortness of Breath EP Interpretation: Yes Interpretation: no consolidation, no effusion, no pneumothorax, no acute cardiopulmonary disease Impression: No acute disease Electronically Signed by: Neel Chin MD Last Vital Signs Date Time Temp Pulse Resp B/P (MAP) Pulse Ox O2 Delivery O2 Flow Rate FiO2 09/25/17 22:11 78 20 100 Nasal Cannula 2.0 24 09/25/17 21:24 98.1 107/63 98.1 Status: improved Disposition: [facility] Condition: Stable Additional Instructions: Followup with your DrCristofer as scheduled. Return if symptom worsen. NEEL CHIN M.D. Sep 25, 2017 22:33
[2017-09-26] VITALS: BP 130/85
[2017-09-26 00:06] VITALS: BP 130/85
--- NOTE | 2017-09-26 11:21 | Diagnostic Imaging Report ---
Indication: Dyspnea Comparison: 10/15/2016 A single view chest radiograph was obtained. Findings: Tracheostomy noted. Lungs are clear. Lung volumes are low. Bones are osteopenic. IMPRESSION: No acute disease
== END 2017-09-26 00:02 ==
LOC: EDBD 21:18 → EMR 21:30
DX: Z43.0 Encounter for attention to tracheostomy (principal); E11.9 Type 2 diabetes mellitus without complications; Z86.69 Personal history of other diseases of the nervous system and sense organs
CPT/HCPCS: 71045; 94002; 94640; 94664; 99284; Z7502; J7620